=== PATIENT | female | born 1940 | race Caucasian/White ===

== ENCOUNTER → 2023-12-08 14:03 | Outpatient (REF) | payer MEDICARE, OTHER, SELFPAY | LOC: WDC 14:03 | PROVIDERS: ATTENDING PHYSICIAN Nurse Practitioner Adult Health; FAMILY PHYSICIAN Family Medicine | DX: N64.4 Mastodynia (principal); C50.411 Malignant neoplasm of upper-outer quadrant of right female breast | CPT/HCPCS: 76642 ==

== ENCOUNTER → 2024-04-10 12:30 | Outpatient (REF) | payer MEDICARE, OTHER, SELFPAY | LOC: WDC 12:30 | PROVIDERS: ATTENDING PHYSICIAN Internal Medicine Hematology & Oncology; FAMILY PHYSICIAN Family Medicine | DX: Z12.31 Encounter for screening mammogram for malignant neoplasm of breast (principal) | CPT/HCPCS: 77063; 77067 ==

== ENCOUNTER → 2024-05-01 10:13 | Outpatient (REF) | payer MEDICARE, OTHER, SELFPAY ==
[2024-05-01 11:05] LABS: % Basophils 0.6 % (0-2); % Eosinophils 2.3 % (0-6); % Immature Granulocytes 0.3 % (0-0.5); % Lymphocytes 36.5 % (20.5-51.1); % Neutrophils 52.3 % (42.2-75.2); Absolute Eosinophils 0.2 10^3/uL (0-0.7); Absolute Lymphocytes 2.3 10^3/uL (1.2-3.4); Absolute Monocytes 0.5 10^3/uL (0.1-0.6); Absolute Neutrophils 3.3 10^3/uL (1.4-6.5); Hematocrit 38.2 % (37.0-47.0); Hemoglobin 12.9 g/dL (12.0-16.0); Mean Corp Hgb Conc. 33.8 g/dL (33.0-37.0); Mean Corpuscular Hgb 31.2 pg (27.0-31.0); Mean Corpuscular Volume 92.5 fL (81.0-99.0); Mean Platelet Volume 10.5 fL (7.4-10.4); Nucleated Red Blood Cells % 0 %; Platelet Count 304 10^3/uL (130-400); Red Blood Cell Count 4.13 10^6/uL (4.20-5.40); White Blood Cell Count 6.4 10^3/uL (4.8-10.8)
[2024-05-01 11:58] LABS: ALT (SGPT) 20 U/L (0-35); AST (SGOT) 33 U/L (14-36); Albumin 4.4 g/dl (3.5-5.0); Alkaline Phosphatase 80 U/L (38-126); Blood Urea Nitrogen 23 mg/dl (7-17); Carbon Dioxide 27 mmol/L (22-30); Chloride 100 mmol/L (98-107); Glucose 93 mg/dl (70-99); HDL Cholesterol 84 mg/dl; LDL Cholesterol, Calculated 110 mg/dl; Potassium 4.9 mmol/L (3.5-5.1); Sodium 136 mmol/L (135-145); Total Bilirubin 0.5 mg/dl (0.2-1.3); Total Cholesterol 208 mg/dl (50-199); Total Protein 6.9 g/dl (6.3-8.2); Triglyceride 70 mg/dl (10-149); Very Low Density Lipoprotein 14 mg/dl (0-30); eGFR 56.25
[2024-05-01 12:11] LABS: Free T4 0.96 ng/dl (0.78-2.19)
[2024-05-01 12:24] LABS: TSH 3.45 uIU/ml (0.47-4.68)
== END ==
LOC: REG 10:13
PROVIDERS: ATTENDING PHYSICIAN Family Medicine
DX: I47.10 Supraventricular tachycardia, unspecified (principal); E04.2 Nontoxic multinodular goiter; I10 Essential (primary) hypertension; C50.911 Malignant neoplasm of unspecified site of right female breast; K21.00 Gastro-esophageal reflux disease with esophagitis, without bleeding; E78.00 Pure hypercholesterolemia, unspecified
CPT/HCPCS: 36415; 80053; 80061; 84439; 84443; 85025

== ENCOUNTER → 2024-05-29 11:14 | Outpatient (REF) | payer MEDICARE, OTHER, SELFPAY ==
[2024-05-29 11:51] LABS: % Eosinophils 2.9 % (0-6); % Immature Granulocytes 0.3 % (0-0.5); % Lymphocytes 38.2 % (20.5-51.1); % Monocytes 9.5 % (1.7-9.3); % Neutrophils 48.1 % (42.2-75.2); Absolute Basophils 0.1 10^3/uL (0-0.2); Absolute Eosinophils 0.2 10^3/uL (0-0.7); Absolute Lymphocytes 2.3 10^3/uL (1.2-3.4); Absolute Monocytes 0.6 10^3/uL (0.1-0.6); Hematocrit 39.3 % (37.0-47.0); Hemoglobin 12.9 g/dL (12.0-16.0); Mean Corp Hgb Conc. 32.8 g/dL (33.0-37.0); Mean Corpuscular Hgb 31.6 pg (27.0-31.0); Mean Corpuscular Volume 96.3 fL (81.0-99.0); Mean Platelet Volume 10.9 fL (7.4-10.4); Nucleated Red Blood Cells % 0 %; Platelet Count 298 10^3/uL (130-400); Red Blood Cell Count 4.08 10^6/uL (4.20-5.40); White Blood Cell Count 6.1 10^3/uL (4.8-10.8)
[2024-05-29 12:30] LABS: ALT (SGPT) 20 U/L (0-35); AST (SGOT) 33 U/L (14-36); Albumin 4.3 g/dl (3.5-5.0); Alkaline Phosphatase 77 U/L (38-126); Direct Bilirubin 0.2 mg/dl (0.0-0.4); Total Bilirubin 0.5 mg/dl (0.2-1.3); Total Protein 6.5 g/dl (6.3-8.2)
[2024-05-29 12:49] LABS: Vitamin D, 25-OH*** 58.2 ng/mL (30-80)
== END ==
LOC: OLABPV 11:14
PROVIDERS: ATTENDING PHYSICIAN Nurse Practitioner Adult Health
DX: C50.411 Malignant neoplasm of upper-outer quadrant of right female breast (principal); E55.9 Vitamin D deficiency, unspecified; M85.89 Other specified disorders of bone density and structure, multiple sites
CPT/HCPCS: 36415; 80076; 82306; 85025

== ENCOUNTER → 2024-06-29 10:19 | Outpatient (REF) | payer MEDICARE, OTHER, SELFPAY | LOC: RAD 10:19 | PROVIDERS: ATTENDING PHYSICIAN Nurse Practitioner Adult Health; FAMILY PHYSICIAN Family Medicine | DX: C50.411 Malignant neoplasm of upper-outer quadrant of right female breast (principal); E55.9 Vitamin D deficiency, unspecified; M85.89 Other specified disorders of bone density and structure, multiple sites | CPT/HCPCS: 77080 ==

== ENCOUNTER → 2024-07-04 13:26 | Outpatient (REF) | payer MEDICARE, OTHER, SELFPAY | LOC: RAD 13:26 | PROVIDERS: ATTENDING PHYSICIAN Nurse Practitioner Family; FAMILY PHYSICIAN Family Medicine | DX: R22.42 Localized swelling, mass and lump, left lower limb (principal); S80.12XA Contusion of left lower leg, initial encounter | CPT/HCPCS: 73590; 93971 ==

== ENCOUNTER → 2024-12-25 14:59 | Outpatient (REF) | payer MEDICARE, OTHER, SELFPAY | LOC: RAD 14:59 | PROVIDERS: ATTENDING PHYSICIAN Nurse Practitioner Family | DX: R05.3 Chronic cough (principal) | CPT/HCPCS: 71046 ==

== ENCOUNTER → 2025-02-26 08:44 | Outpatient (REF) | payer MEDICARE, OTHER, SELFPAY | LOC: WDC 08:44 | PROVIDERS: ATTENDING PHYSICIAN Family Medicine | DX: R92.343 Mammographic extreme density, bilateral breasts (principal) | CPT/HCPCS: 76641 ==

== ENCOUNTER → 2025-04-11 15:50 | Outpatient (REF) | payer MEDICARE, OTHER, SELFPAY | LOC: WDC 15:50 | PROVIDERS: ATTENDING PHYSICIAN Nurse Practitioner Adult Health; FAMILY PHYSICIAN Family Medicine | DX: Z12.31 Encounter for screening mammogram for malignant neoplasm of breast (principal) | CPT/HCPCS: 77063; 77067 ==

== ENCOUNTER → 2025-05-29 08:52 | Outpatient (REF) | payer MEDICARE, OTHER, SELFPAY ==
[2025-05-29 09:33] LABS: Hematocrit 38.5 % (37.0-47.0); Hemoglobin 12.5 g/dL (12.0-16.0); Mean Corp Hgb Conc. 32.5 g/dL (33.0-37.0); Mean Corpuscular Volume 94.6 fL (81.0-99.0); Nucleated Red Blood Cells % 0 %; Platelet Count 262 10^3/uL (130-400); Red Cell Dist. Width 12.2 % (11.5-14.5)
[2025-05-29 10:05] LABS: ALT (SGPT) 19 U/L (0-35); AST (SGOT) 27 U/L (14-36); Albumin 4.1 g/dl (3.5-5.0); Alkaline Phosphatase 64 U/L (38-126); Blood Urea Nitrogen 25 mg/dl (7-17); Calcium 9.6 mg/dl (8.4-10.2); Carbon Dioxide 29 mmol/L (22-30); Chloride 104 mmol/L (98-107); Glucose 94 mg/dl (70-99); HDL Cholesterol 73 mg/dl; LDL Cholesterol, Calculated 106 mg/dl; Potassium 4.8 mmol/L (3.5-5.1); Sodium 136 mmol/L (135-145); Total Protein 6.5 g/dl (6.3-8.2); Very Low Density Lipoprotein 12 mg/dl (0-30); eGFR 55.90
[2025-05-29 10:15] LABS: Vitamin D, 25-OH*** 57.6 ng/mL (30-80)
[2025-05-29 10:29] LABS: TSH 2.89 uIU/ml (0.47-4.68)
[2025-05-29 12:27] LABS: Urine Character Clear (Clear)
== END ==
LOC: REG 08:52
PROVIDERS: ATTENDING PHYSICIAN Dermatology; FAMILY PHYSICIAN Family Medicine
DX: C50.411 Malignant neoplasm of upper-outer quadrant of right female breast (principal); E55.9 Vitamin D deficiency, unspecified; M85.89 Other specified disorders of bone density and structure, multiple sites; M85.859 Other specified disorders of bone density and structure, unspecified thigh; E78.5 Hyperlipidemia, unspecified; I10 Essential (primary) hypertension; E04.2 Nontoxic multinodular goiter; K21.9 Gastro-esophageal reflux disease without esophagitis
CPT/HCPCS: 36415; 80053; 80061; 81003; 82248; 82306; 84439; 84443; 85025

== ENCOUNTER 2025-06-20 06:22 | Day surgery (SDC) | payer MEDICARE, OTHER, SELFPAY | END 2025-06-20 11:22 | disposition home or self-care (01) | LOC: GI 06:22 | PROVIDERS: ATTENDING PHYSICIAN Internal Medicine Gastroenterology; FAMILY PHYSICIAN Family Medicine | DX: Z12.11 Encounter for screening for malignant neoplasm of colon (principal); K57.30 Diverticulosis of large intestine without perforation or abscess without bleeding; K64.8 Other hemorrhoids; R12 Heartburn; K22.2 Esophageal obstruction; I85.00 Esophageal varices without bleeding; K44.9 Diaphragmatic hernia without obstruction or gangrene; K76.6 Portal hypertension; K31.7 Polyp of stomach and duodenum; K22.70 Barrett's esophagus without dysplasia; K31.89 Other diseases of stomach and duodenum; D12.2 Benign neoplasm of ascending colon; D12.3 Benign neoplasm of transverse colon; Z86.0101 Personal history of adenomatous and serrated colon polyps | CPT/HCPCS: 45385; 43239; 88305 ==

== ENCOUNTER → 2025-08-29 13:38 | Outpatient (REF) | payer MEDICARE, OTHER, SELFPAY | LOC: WDC 13:38 | PROVIDERS: ATTENDING PHYSICIAN Internal Medicine Hematology & Oncology; FAMILY PHYSICIAN Family Medicine | DX: R92.8 Other abnormal and inconclusive findings on diagnostic imaging of breast (principal); Z85.3 Personal history of malignant neoplasm of breast; C50.411 Malignant neoplasm of upper-outer quadrant of right female breast | CPT/HCPCS: 76642 ==

== ENCOUNTER → 2025-10-14 07:12 | Outpatient (REF) | payer MEDICARE, OTHER, SELFPAY | LOC: HWRCS 07:12 | PROVIDERS: ATTENDING PHYSICIAN Internal Medicine Cardiovascular Disease; FAMILY PHYSICIAN Family Medicine | DX: R07.9 Chest pain, unspecified (principal) | CPT/HCPCS: 78452; 93017; A9500; J2785 ==

== ENCOUNTER → 2025-10-15 08:52 | Outpatient (REF) | payer MEDICARE, OTHER, SELFPAY | LOC: HWRCS 08:52 | PROVIDERS: ATTENDING PHYSICIAN Internal Medicine Cardiovascular Disease; FAMILY PHYSICIAN Family Medicine | DX: R06.02 Shortness of breath (principal) | CPT/HCPCS: 93306 ==

== ENCOUNTER 2025-10-23 12:59 | Emergency (ER) | payer MEDICARE, OTHER, SELFPAY ==
[2025-10-23] VITALS (8 sets, daily range): BP systolic 144–180; BP diastolic 71–94; PULSE 65–72
[2025-10-23 13:29] LABS: Hematocrit 38.3 % (37.0-47.0); Hemoglobin 13.3 g/dL (12.0-16.0); Mean Corp Hgb Conc. 34.7 g/dL (33.0-37.0); Mean Corpuscular Volume 89.1 fL (81.0-99.0); Nucleated Red Blood Cells % 0 %; Platelet Count 292 10^3/uL (130-400); Red Cell Dist. Width 12.4 % (11.5-14.5)
[2025-10-23 13:45] LABS: ALT (SGPT) 21 U/L (0-35); AST (SGOT) 39 U/L (14-36); Albumin 4.4 g/dl (3.5-5.0); Alkaline Phosphatase 82 U/L (38-126); Blood Urea Nitrogen 20 mg/dl (7-17); Calcium 9.8 mg/dl (8.4-10.2); Carbon Dioxide 26 mmol/L (22-30); Chloride 104 mmol/L (98-107); Glucose 101 mg/dl (70-99); Potassium 4.4 mmol/L (3.5-5.1); Sodium 136 mmol/L (135-145); Total Protein 7.3 g/dl (6.3-8.2); eGFR 55.90
--- NOTE | 2025-10-23 15:25 | ED.GENMED ---
History of Present Illness
General
Chief Complaint: Heart Rate Problem
Source: patient
Exam Limitations: none
Time Seen by Provider: 10/23/25 15:10
History of Present Illness
History of Present Illness:
84-year-old female presents from [facility] with complaints of slow heart rate and fatigue ongoing over the past couple months. She is known to have a first-degree heart block but at the time of her echocardiogram the earlier this week that she had a
second-degree heart block. She is due to have a stress test dated November 05. She denies chest pain. She denies fevers or vomiting. No cough. No shortness of breath. No leg swelling. Recently stopped her metoprolol
Past History
Past History
ED Past Medical History: Arrthythmia (ablation), Asthma (bronchits) and Other (IBS)
ED Past Surgical History: Cardiac (af ablation), Gynecological (Hysterectomy), Orthopedic (Foot surg, Mike ,knee replacements.), Tonsilectomy and Other (Mike ovarian cyst, colon Polyps,); Negative Brain
Social History
Tobacco: Non-smoker
Alcohol: Occasional
Drug: None
Personal:
Living: with family
Employment: Employed
Family History
Family History: Hypertension and Other (Mother with rheumatoid arthritis)
Phy Exam
Physical Exam
Physical Exam:
General: Well-appearing female no acute respiratory distress
HEENT: Normal cephalic atraumatic
Heart: Regular rate and rhythm
Lungs: Clear no wheeze
Extremities: No cyanosis or edema
Skin warm no rash
Course
Orders/Labs/Results
Orders:
Orders
10/23/25 13:08
Electrocardiogram (*1) Urgent
Reason for Study: Bradycardia / Tachycardia
10/23/25 13:09
EKG- Treatment ONCE
10/23/25 13:19
CMP [Comprehensive Metabolic Panel] Urgent
Complete Blood Count/With Diff Urgent
10/23/25 15:24
Orthostatic VS- Treatment ONCE
10/23/25 16:17
Urinalysis Urgent
Date Specimen was Collected: 10/23/25
Time Specimen was Collected: 16:09
Urine Microscopic Urgent
Date Specimen was Collected: 10/23/25
Time Specimen was Collected: 16:09
Abnormal Lab Results
10/23/25 10/23/25
13:19 16:17
MPV 10.6 H fL
(7.4-10.4)
BUN 20 H mg/dl
(7-17)
Glucose 101 H mg/dl
(70-99)
AST 39 H U/L
(14-36)
Urine Ketones 1+ A
(Negative)
Ur Leukocyte Esterase 3+ A
(Negative)
Urine WBC 40-50 A /HPF
(0-5)
Urine Bacteria Many A
(Negative)
Urine Albumin 1+ A
(Neg - Trace)
10/23/25 13:19
10/23/25 13:19
Vital Signs
Initial and Last Documented VS:
Initial Vital Signs
Temp Pulse Resp BP Pulse Ox
98.0 F 72 16 170/94 100
10/23/25 13:04 10/23/25 13:04 10/23/25 13:04 10/23/25 13:04 10/23/25 13:04
Last Documented Vital Signs
Temp Pulse Resp BP Pulse Ox
98.0 F 72 16 170/94 100
10/23/25 13:04 10/23/25 13:04 10/23/25 13:04 10/23/25 13:04 10/23/25 15:28
MDM/Problems Addressed
Differential Diagnosis Includes:
Patient with fatigue and low heart rate. Labs reviewed no significant finding. Heart rates been in the 60s and 70s the entire time here.
Echocardiogram performed 8 days ago showed an EF of 55% with normal size and function otherwise.
*Pulse Oximetry
SaO2: 100
Oxygen Mode of Delivery: Room air
Patient hypoxic: no
*Critical Care Note
Total Time (30-74mins, 75-104mins- exclusive of procedures): Not Applicable
Update Note
Update Note:
Patient remained nontoxic here with normal vital signs no episodes of bradycardia. Orthostatic vital signs negative she ambulated to the bathroom. No indication for admission. Stable for discharge with follow-up
ED Attending Note
-
Portions of this chart may have been created with voice recognition software.� Occasional wrong word or��sound alike� substitutions may have occurred due to the inherent limitations of voice recognition software.
Discharge Plan
Departure
Patient Disposition: Home (Routine Discharge)
Date of Disposition: 10/23/25
Time of Disposition: 18:07
Patient with high blood pressure during this ER visit?: No
Discharge Problem:
Fatigue
Prescriptions:
No Action
esomeprazole magnesium [Nexium] 40 MG capsule,delayed release(DR/EC)
40 mg PO DAILY
cetirizine 10 MG tablet
10 mg PO DAILY PRN (Reason: allergies)
biotin 5 MG capsule
5 mg PO DAILY
alprazolam 0.25 MG tablet
0.25 mg PO DAILY PRN (Reason: anxiety)
Patient Comments:
10/19/2023: last filled 08/10/23, 30 tabs for 30 days from [facility]
sertraline 50 MG tablet
50 mg PO DAILY
fluticasone propionate [Flovent HFA] 1 PUFF HFA aerosol inhaler
2 puff inhalation R BID
carboxymethylcellulose sodium [Refresh Liquigel] 30 ML drops, liquid gel
1 drp BOTH EYES QID PRN (Reason: dry eyes)
anastrozole 1 mg tablet
1 mg PO HS
cefuroxime axetil 250 mg tablet
250 mg PO BID
Patient Comments:
10/19/2023: Pt stated once daily, prescribed as BID
famotidine 40 mg tablet
40 mg PO HS
aspirin 81 mg Tablet,Delayed Release (Dr/Ec)
81 mg PO Q48H
olopatadine 0.1 % drops
1 drp BOTH EYES BID
sodium chloride 0.65 % Aerosol,[place]
2 spray INTRANASAL QID PRN (Reason: allergy/dryness)
rosuvastatin 5 mg tablet
5 mg PO MOWEFR@2200
Surgery Eye Drop 3in1
1 drp LEFT EYE BID
Patient Comments:
10/19/2023: Pt unsure of name of medications, received from a surgery center in [place]
metoprolol succinate [Toprol XL] 25 MG tablet extended release 24 hr
25 mg PO HS
guaifenesin [Siltussin SA] 100 mg/5 mL Liquid
200 mg PO Q4HPRN PRN (Reason: cough) 10 Days Qty: 473 0RF
benzonatate 100 mg Capsule
200 mg PO TIDPRN PRN (Reason: severe cough) Qty: 30 0RF
prednisone 10 mg Tablet
See Rx Instructions .ROUTE .COMPLEX Qty: 30 0RF
Rx Instructions:
Take By Mouth:
40 mg daily x3 days, 30 mg daily x3 days,
20 mg daily x3 days, 10 mg daily x3 days.
albuterol sulfate 90 MCG/PUFF HFA aerosol inhaler
2 puff inhalation Q4HPRN PRN (Reason: sob/wheezing) 30 Days Qty: 6.7 0RF
Referrals:
Agueda Mckeon MD [Family Provider, Family Practice]
Activity Restrictions/Additional Instructions:
Rest. Stay hydrated. Follow-up with your cardiology team peer return if worse otherwise
Interventions
Interventions:
*Neglect/Abuse Screening Last Done: 10/23/25 13:04
*Risk Screen - Suicide (C-SSRS) Last Done: 10/23/25 13:04
ED- Cardiac Assessment Last Done: 10/23/25 15:50
ED- Pulmonary Assessment Last Done: 10/23/25 15:50
Discharge Date and Time
Print Language: KOREAN
[2025-10-23 17:03] LABS: Urine Character Slightly Cloudy (Clear)
[2025-10-23 17:33] LABS: Urine Red Blood Cell 0-2 /HPF (0-2); Urine White Cell 40-50 /HPF (0-5)
== END 2025-10-23 18:41 | disposition home or self-care (01) ==
LOC: EMR 12:59
PROVIDERS: Student in an Organized Health Care Education/Training Program; EMERGENCY PHYSICIAN Emergency Medicine; FAMILY PHYSICIAN Family Medicine
DX: R00.1 Bradycardia, unspecified (principal); R53.83 Other fatigue; I44.1 Atrioventricular block, second degree; J45.909 Unspecified asthma, uncomplicated; K58.9 Irritable bowel syndrome, unspecified; Z82.49 Family history of ischemic heart disease and other diseases of the circulatory system; Z82.61 Family history of arthritis; Z86.0100 Personal history of colon polyps, unspecified; Z90.710 Acquired absence of both cervix and uterus; Z96.653 Presence of artificial knee joint, bilateral
CPT/HCPCS: 99283; 80053; 81003; 81015; 85025; 93005